=== PATIENT | female | born 1945 | race African-American/Black ===

== ENCOUNTER 2020-04-26 12:05 | Inpatient (IN) | payer MEDICARE, OTHER ==
[~2020-04-26] VITALS: Ht 162.6 cm; Wt 78.9 kg
[2020-04-26] MEDS ORDERED: NIFE-33 PO (12:16)
[2020-04-26] MEDS ORDERED: ATEN100T PO (12:16)
[2020-04-26] MEDS ORDERED: ASPI-1158 PO (12:16)
[2020-04-26] MEDS ORDERED: METF-815 PO (12:17)
[2020-04-26] MEDS ORDERED: LISI-186 PO (12:18)
[2020-04-26] MEDS ORDERED: GABA-529 PO (12:18)
[2020-04-26] MEDS ORDERED: ATOR40TA70 PO (12:18)
[2020-04-26 12:53] LABS: BASOPHILS % 0.5 % (0.0-2.0); HEMATOCRIT. 22.1 % (36.0-48.0); LYMPHOCYTES % 15.4 % (20.0-50.0); MEAN CORPUSCULAR HEMOGLOBIN 20.9 pg (28.0-32.0); MEAN CORPUSCULAR VOLUME 68.9 fL (81.0-99.0); MEAN PLATELET VOLUME 8.1 fl (7.4-10.4); MONOCYTES % 5.3 % (2.0-8.0); NEUTROPHILS % 76.8 % (40.0-76.0); PLATELET 341 x1000/uL (130-400); RED BLOOD CELL COUNT 3.21 mill/uL (4.2-5.4); RED CELL DISTRIBUTION WIDTH 18.4 % (11.6-14.6)
[2020-04-26 12:57] LABS: CHLORIDE 104 mEq/L (98-107)
[2020-04-26 13:03] LABS: HEMOGLOBIN. 6.7 g/dL (12.0-16.0); PROTHROMBIN TIME 10.7 sec (9.6-11.0)
[2020-04-26 13:18] LABS: PLATELET ESTIMATE NORMAL
[2020-04-26 14:53] LABS: CLARITY URINE CLEAR (CLEAR); COLOR URINE YELLOW (YELLOW); KETONES URINE NEGATIVE (NEGATIVE); LEUKOCYTE ESTERASE URINE 2+ (NEGATIVE); NITRITE URINE POSITIVE (NEGATIVE); OCCULT BLOOD URINE NEGATIVE (NEGATIVE); PROTEIN URINE NEGATIVE (NEGATIVE); SPECIFIC GRAVITY URINE 1.005 (1.005-1.030)
[2020-04-26] MEDS ORDERED: ACETAMINOPHEN 325MG TABLET PO PRN ×2 (17:00)
[2020-04-26] MEDS ORDERED: IPRATROPIUM/ALBUTEROL 0.5-3(2.5)MG/3ML NEB HHN PRN (17:00)
[2020-04-26] MEDS ORDERED: LORAZEPAM 0.5MG TABLET PO PRN (17:00)
[2020-04-26] MEDS ORDERED: ONDANSETRON HCL 4MG/2ML INJ IV PRN (17:00)
[2020-04-26] MEDS ORDERED: CLONIDINE 0.1MG TABLET PO PRN (17:00)
[2020-04-26] MEDS ORDERED: HYDROCODONE/ACETAMINOPHEN 5/325MG TABLET PO PRN (17:00)
[2020-04-26] MEDS ORDERED: GUAIFENESIN 200MG/10ML SUGAR FREE UDC PO PRN (17:00)
[2020-04-26] MEDS: NIFEDIPINE XL 30MG TAB PO SCH (17:14)
[2020-04-26] MEDS ORDERED: CEFTRIAXONE 1 G PREMIX 50 ML IV ONE (17:15)
[2020-04-26] MEDS: LISINOPRIL 5MG TABLET PO SCH (17:18)
[2020-04-26 17:21] LABS: TOTAL IRON BINDING CAPACITY 371 ug/dL (250-450)
[2020-04-26 21:00] VITALS: BP 126/75
[2020-04-26] MEDS ORDERED: GABAPENTIN 100MG CAPSULE PO SCH (21:00)
[2020-04-26 21:30] VITALS: BP 126/75
[2020-04-26 22:44] LABS: *AMPHETAMINES SCREEN URINE NEGATIVE (NEGATIVE); *BARBITURATES SCREEN URINE NEGATIVE (NEGATIVE); *BENZODIAZEPINES SCREEN URINE NEGATIVE (NEGATIVE); *COCAINE SCREEN URINE NEGATIVE (NEGATIVE); METHADONE URINE SCREEN NEGATIVE (NEGATIVE); OPIATES URINE SCREEN NEGATIVE (NEGATIVE); PHENCYCLIDINE URINE SCREEN NEGATIVE (NEGATIVE)
[2020-04-26 22:45] LABS: CANNABINOID URINE SCREEN NEGATIVE (NEGATIVE)
[2020-04-27] VITALS: BP 144/72
[2020-04-27 04:00] VITALS: BP 132/60
[2020-04-27 06:36] LABS: CHLORIDE 106 mEq/L (98-107)
[2020-04-27 06:44] LABS: BASOPHILS % 0.9 % (0.0-2.0); EOSINOPHILS % 3.1 % (0.0-5.0); HEMATOCRIT. 31.8 % (36.0-48.0); LYMPHOCYTES % 13.3 % (20.0-50.0); MEAN CORPUSCULAR HEMOGLOBIN 23.4 pg (28.0-32.0); MEAN CORPUSCULAR VOLUME 74.8 fL (81.0-99.0); MEAN PLATELET VOLUME 8.6 fl (7.4-10.4); MONOCYTES % 5.2 % (2.0-8.0); NEUTROPHILS % 77.5 % (40.0-76.0); PLATELET 295 x1000/uL (130-400); RED BLOOD CELL COUNT 4.26 mill/uL (4.2-5.4); RED CELL DISTRIBUTION WIDTH 22.3 % (11.6-14.6)
[2020-04-27 08:00] VITALS: BP 139/57
[2020-04-27 08:04] VITALS: BP 139/55
[2020-04-27] MEDS: LISINOPRIL 5MG TABLET PO SCH (08:06)
[2020-04-27] MEDS: NIFEDIPINE XL 30MG TAB PO SCH (08:06)
[2020-04-27] MEDS ORDERED: ATENOLOL 100 MG TABLET PO SCH (09:00)
[2020-04-27] MEDS ORDERED: ATORVASTATIN CALCIUM 40MG TABLET PO SCH (09:00)
[2020-04-27] MEDS ORDERED: ATENOLOL 50 MG TABLET PO SCH (09:00)
[2020-04-27 12:00] VITALS: BP 147/55
[2020-04-27] MEDS ORDERED: IRON SUCROSE COMPLEX 100 MG/5 ML ML IV SCH (12:00)
[2020-04-27] MEDS ORDERED: FERR325T6 MT (15:59)
[2020-04-27 16:51] VITALS: BP 129/57
== END 2020-04-27 17:45 | disposition home health service (06) | DRG 812 ==
LOC: ER 12:05 → EDBEDREQ 12:35 → 8WST 13:43 → EDBEDREQTM 13:53 → EDBEDREQ 13:53 → ENRESERV 19:19
PROVIDERS: ADMIT Internal Medicine; ATTEND Internal Medicine
PROC: 30233N1 Transfusion of Nonautologous Red Blood Cells into Peripheral Vein, Percutaneous Approach (ICD-10-PCS; principal; 2020-04-26)
DX: D50.9 Iron deficiency anemia, unspecified (principal); N39.0 Urinary tract infection, site not specified; K92.2 Gastrointestinal hemorrhage, unspecified; I69.351 Hemiplegia and hemiparesis following cerebral infarction affecting right dominant side; D72.810 Lymphocytopenia; E11.65 Type 2 diabetes mellitus with hyperglycemia; E78.00 Pure hypercholesterolemia, unspecified; E87.6 Hypokalemia; I10 Essential (primary) hypertension; Z79.82 Long term (current) use of aspirin; Z79.84 Long term (current) use of oral hypoglycemic drugs; Z79.899 Other long term (current) drug therapy; I69.322 Dysarthria following cerebral infarction
CPT/HCPCS: 36415; 71045; 80048; 80053; 80305; 81003; 82728; 82962; 83540; 83550; 85025; 86850; 86900; 86920; 87077; 87186; 93005; 99285; J0696; P9016